=== PATIENT | male | born 1960 | race Caucasian/White ===

== ENCOUNTER 2019-03-27 11:15 | Outpatient (CLI) | payer MEDICARE, OTHER | END 2019-03-27 23:59 | disposition home or self-care (01) | LOC: 64 CT 11:15 | PROVIDERS: ATTEND Surgery | DX: K40.90 Unilateral inguinal hernia, without obstruction or gangrene, not specified as recurrent (principal); I71.4 Abdominal aortic aneurysm, without rupture; J90 Pleural effusion, not elsewhere classified; N40.0 Benign prostatic hyperplasia without lower urinary tract symptoms; N26.1 Atrophy of kidney (terminal); K82.8 Other specified diseases of gallbladder; I70.90 Unspecified atherosclerosis | CPT/HCPCS: 74176 ==

== ENCOUNTER 2019-07-23 11:46 | Inpatient (IN) | payer MEDICARE, OTHER ==
[~2019-07-23] VITALS: Ht 172.7 cm; Wt 85.3 kg
[~2019-07-23 11:46] MED LIST: CEFTAZIDIME IVT SCH; STERILE IVT SCH; WATER FOR INJECTION IVT SCH
[2019-07-23] MEDS ORDERED: acetaminophen 325mg tablet PO PRN (12:25)
[2019-07-23] MEDS ORDERED: ondansetron/PF 4mg/2ml inj IV PRN (12:25)
[2019-07-23 12:30] VITALS: BP 124/89
[2019-07-23] MEDS ORDERED: perit dialysis 13 & dext 2.5% 6,000 ML IP PRN (12:35)
[2019-07-23 13:13] LABS: BASOPHILS # (AUTO) 0.1 X10'3 (0-0.2); BASOPHILS % (AUTO) 1.2 % (0-1); EOSINOPHILS # (AUTO) 0.3 X10'3 (0-0.9); EOSINOPHILS % (AUTO) 3.6 % (0-6); HEMATOCRIT 30.7 % (42.0-52.0); LYMPHOCYTES % (AUTO) 10.4 % (21-51); MEAN CORPUSCULAR HEMOGLOBIN 34.8 PG (27.0-31.0); MEAN CORPUSCULAR HGB CONC 32.6 g/dL (33.0-36.5); MEAN CORPUSCULAR VOLUME 106.6 FL (78-98); MEAN PLATELET VOLUME 8.9 FL (7.4-10.4); MONOCYTES % (AUTO) 10.6 % (2-12); NEUTROPHILS # (AUTO) 7.1 X10'3 (1.8-7.7); NEUTROPHILS % (AUTO) 74.2 % (42-75); PLATELET COUNT 182 X10'3 (140-440); RED BLOOD COUNT 2.88 X10'6 (4.70-6.10); RED CELL DISTRIBUTION WIDTH 18.5 % (11.5-14.5); WHITE BLOOD COUNT 9.6 X10'3 (4.5-11.0)
[2019-07-23 13:25] LABS: ALANINE AMINOTRANSFERASE 28 U/L (12-78); ALBUMIN 2.4 G/DL (3.4-5.0); ALBUMIN/GLOBULIN RATIO 0.7 (1.1-1.5); ALKALINE PHOSPHATASE 85 IU/L (46-116); ANION GAP 11 (8-16); ASPARTATE AMINO TRANSFERASE 16 U/L (10-37); BILIRUBIN,TOTAL 0.3 MG/DL (0.1-1.0); BLOOD UREA NITROGEN 75 MG/DL (7-18); BUN/CREATININE RATIO 7.2 (5.4-32.0); CALCIUM 8.9 MG/DL (8.5-10.1); CHLORIDE 100 MMOL/L (99-107); CREATININE 10.44 MG/DL (0.60-1.10); GLUCOSE 119 MG/DL (70-104); SODIUM 141 MMOL/L (135-145); TOTAL CARBON DIOXIDE 29.9 MMOL/L (24-32); TOTAL PROTEIN 5.8 G/DL (6.4-8.2); eGFR 5 ML/MIN
[2019-07-23] MEDS ORDERED: DEXT IJ ONE ×3 (13:25→14:02)
[2019-07-23] MEDS ORDERED: PERIT DIALYSIS IJ ONE ×3 (13:25→14:02)
[2019-07-23] MEDS ORDERED: CEFTAZIDIME IJ ONE ×3 (13:25→14:02)
[2019-07-23 13:31] LABS: POTASSIUM 2.9 MMOL/L (3.5-5.1)
--- NOTE | 2019-07-23 13:40 | NUR ---
Received TC from lab at 1330 that pt had critical Potassium of 2.9. TC placed to in ICU to inform. Informed currently "doing a procedure" by Fely. Fely stated she would give Dr. Cherry a message. Will continue to monitor new MD orders.
[2019-07-23 13:59] VITALS: BP 124/89
[2019-07-23 14:05] VITALS: BP 135/89
[2019-07-23 14:05] LABS: PLATELET ESTIMATE NORMAL
[2019-07-23] MEDS ORDERED: LOSA100T57 PO (14:05)
[2019-07-23] MEDS ORDERED: EZET10TA48 PO (14:05)
[2019-07-23] MEDS ORDERED: FOLI0.8T7 PO (14:05)
[2019-07-23] MEDS ORDERED: VENL75CA61 PO (14:05)
[2019-07-23] MEDS ORDERED: CHOL100044 PO (14:05)
[2019-07-23] MEDS ORDERED: FURO40TA4 PO (14:05)
[2019-07-23] MEDS ORDERED: ASPI81TA52 PO (14:05)
[2019-07-23] MEDS ORDERED: CARV6.253 PO (14:05)
[2019-07-23] MEDS ORDERED: MOME15CR TOP (14:05)
[2019-07-23] MEDS ORDERED: CALC667C5 PO (14:05)
[2019-07-23] MEDS ORDERED: HYDR-3686 PO (14:05)
[2019-07-23] MEDS ORDERED: PANT40TA4 PO (14:05)
[2019-07-23] MEDS ORDERED: ATOR-2 PO (14:05)
[2019-07-23] MEDS ORDERED: CLOP75TA35 PO (14:05)
[2019-07-23] MEDS ORDERED: SEVE800T7 PO (14:05)
[2019-07-23 14:06] VITALS: BP 117/79
[2019-07-23 14:06] LABS: ANISOCYTOSIS 2+
[2019-07-23] MEDS ORDERED: UBID100C45 PO (14:06)
[2019-07-23] MEDS ORDERED: AMLO10TA13 PO (14:07)
[2019-07-23] MEDS ORDERED: CINA30TA7 PO (14:20)
[2019-07-23] MEDS ORDERED: [UNRECOGNIZED DRUG - CODE] SQ (14:22)
[2019-07-23] MEDS ORDERED: LEVO50TA PO (14:41)
[2019-07-23] MEDS ORDERED: potassium Cl 20 mEq SR tablet PO STA (15:10)
[2019-07-23 16:11] LABS: BFAPPEAR CLEAR
[2019-07-23 16:12] LABS: BF RBC COUNT 445 /CU MM; BF WBC COUNT 110 /CU MM (0-1000); BFCOLOR OTHER; BFVOLUME 23 ML; LYMPHOCYTES,BODY FLUID 56 %; NEUTROPHILS,BODY FLUID 44 %
[2019-07-23 18:30] VITALS: BP 134/87
[2019-07-23 20:00] VITALS: BP_SYST 133; BP_SYST 135; BP_SYST 136; BP_DIAS 85; BP_DIAS 86; BP_DIAS 92
[2019-07-23] MEDS: heparin, porcine 5000 units/ml vial SQ SCH (20:49)
[2019-07-23] MEDS: docusate sod 100mg capsule PO SCH (20:50)
[2019-07-24] VITALS (11 sets, daily range): BP systolic 140–167; BP diastolic 89–126
[2019-07-24 05:30] LABS: BASOPHILS # (AUTO) 0.1 X10'3 (0-0.2); BASOPHILS % (AUTO) 1.1 % (0-1); EOSINOPHILS # (AUTO) 0.4 X10'3 (0-0.9); HEMATOCRIT 30.4 % (42.0-52.0); HEMOGLOBIN 10.3 g/dl (14.0-17.9); LYMPHOCYTES # (AUTO) 1.1 X10'3 (1.1-4.8); LYMPHOCYTES % (AUTO) 11.4 % (21-51); MEAN CORPUSCULAR HEMOGLOBIN 35.5 PG (27.0-31.0); MEAN CORPUSCULAR HGB CONC 33.8 g/dL (33.0-36.5); MEAN CORPUSCULAR VOLUME 105.1 FL (78-98); MONOCYTES # (AUTO) 1.3 X10'3 (0-0.9); MONOCYTES % (AUTO) 13.3 % (2-12); NEUTROPHILS # (AUTO) 6.6 X10'3 (1.8-7.7); NEUTROPHILS % (AUTO) 70.2 % (42-75); PLATELET COUNT 203 X10'3 (140-440); RED BLOOD COUNT 2.89 X10'6 (4.70-6.10); RED CELL DISTRIBUTION WIDTH 18.8 % (11.5-14.5); WHITE BLOOD COUNT 9.5 X10'3 (4.5-11.0)
[2019-07-24 05:47] LABS: ALANINE AMINOTRANSFERASE 29 U/L (12-78); ALBUMIN 2.5 G/DL (3.4-5.0); ALBUMIN/GLOBULIN RATIO 0.7 (1.1-1.5); ALKALINE PHOSPHATASE 87 IU/L (46-116); ANION GAP 13 (8-16); ASPARTATE AMINO TRANSFERASE 21 U/L (10-37); BILIRUBIN,TOTAL 0.3 MG/DL (0.1-1.0); BLOOD UREA NITROGEN 74 MG/DL (7-18); BUN/CREATININE RATIO 6.8 (5.4-32.0); CALCIUM 8.9 MG/DL (8.5-10.1); CHLORIDE 99 MMOL/L (99-107); CREATININE 10.87 MG/DL (0.60-1.10); GLUCOSE 104 MG/DL (70-104); POTASSIUM 3.3 MMOL/L (3.5-5.1); SODIUM 139 MMOL/L (135-145); TOTAL CARBON DIOXIDE 26.6 MMOL/L (24-32); TOTAL PROTEIN 6.1 G/DL (6.4-8.2); eGFR 5 ML/MIN
--- NOTE | 2019-07-24 06:25 | NUR ---
Problems reprioritized. Patient report given, questions answered & plan of care reviewed with NIMESH MARTIN.
[2019-07-24 07:00] LABS: PLATELET ESTIMATE NORMAL
[2019-07-24 07:01] LABS: ANISOCYTOSIS 2+; HYPOCHROMASIA 1+; POLYCHROMASIA 2+
[2019-07-24 07:02] LABS: STOMATOCYTES FEW
[2019-07-24] MEDS ORDERED: epoetin 20,000 units/ml inj IV ONE (08:00)
[2019-07-24] MEDS ORDERED: normal saline 1000ml 250 ML IV PRN (08:00)
[2019-07-24] MEDS: heparin, porcine 5000 units/ml vial SQ SCH ×2 (08:00→21:19)
[2019-07-24] MEDS ORDERED: heparin 1,000 units/ml 10ml inj HE ONE ×2 (08:00)
[2019-07-24] MEDS: docusate sod 100mg capsule PO SCH ×2 (08:00→20:00)
[2019-07-24] MEDS ORDERED: mometasone furoate 0.1% cream 15gm tube TP PRN (11:10)
[2019-07-24] MEDS: sevelamer carbonate 800mg tablet PO SCH ×2 (13:00→19:17)
[2019-07-24] MEDS: calcium acetate 667mg (PhosLO) capsule PO SCH ×2 (13:00→18:00)
[2019-07-24] MEDS ORDERED: normal saline 1000ml 1,000 ML IV SCH (13:51)
[2019-07-24] MEDS ORDERED: midazolam 2 mg/2 ml injection IV PRN (13:55)
[2019-07-24] MEDS ORDERED: fentaNYL/PF 50MCG/1 ML 2ML syringe IV PRN (13:55)
[2019-07-24] MEDS ORDERED: LIDOcaine 1%/PF 5ML 10 MG/ML VIAL SQ ONE (13:55)
[2019-07-24] MEDS ORDERED: fentaNYL/PF 50MCG/1 ML 2ML syringe ONE (14:44)
[2019-07-24] MEDS ORDERED: heparin 1,000unit/ml 10ml vial 10 ML ONE (14:44)
[2019-07-24] MEDS ORDERED: midazolam 2 mg/2 ml injection ONE (14:44)
[2019-07-24] MEDS ORDERED: LIDOcaine 1%/PF 5ML 10 MG/ML VIAL ONE (14:44)
[2019-07-24] MEDS ORDERED: ondansetron/PF 4mg/2ml inj ONE (14:50)
[2019-07-24] MEDS ORDERED: ondansetron/PF 4mg/2ml inj IV ONE (16:00)
[2019-07-24] MEDS ORDERED: pantoprazole 40mg Tablet.DR PO ONE (19:40)
[2019-07-24] MEDS: carvedilol 6.25mg tablet PO SCH (21:17)
[2019-07-24] MEDS: vitamin D (cholecalciferol) 1,000 unit tablet PO SCH (21:17)
[2019-07-24] MEDS: hydrOXYzine 25 MG tablet PO SCH (21:18)
[2019-07-25] VITALS (11 sets, daily range): BP systolic 123–162; BP diastolic 75–108
[2019-07-25 05:57] LABS: BASOPHILS # (AUTO) 0.1 X10'3 (0-0.2); BASOPHILS % (AUTO) 0.8 % (0-1); EOSINOPHILS # (AUTO) 0.3 X10'3 (0-0.9); EOSINOPHILS % (AUTO) 3.4 % (0-6); HEMATOCRIT 31.5 % (42.0-52.0); HEMOGLOBIN 10.5 g/dl (14.0-17.9); LYMPHOCYTES # (AUTO) 0.7 X10'3 (1.1-4.8); MEAN CORPUSCULAR HEMOGLOBIN 35.5 PG (27.0-31.0); MEAN CORPUSCULAR HGB CONC 33.2 g/dL (33.0-36.5); MEAN CORPUSCULAR VOLUME 106.9 FL (78-98); MEAN PLATELET VOLUME 8.8 FL (7.4-10.4); MONOCYTES # (AUTO) 1.1 X10'3 (0-0.9); NEUTROPHILS % (AUTO) 73.8 % (42-75); PLATELET COUNT 191 X10'3 (140-440); RED BLOOD COUNT 2.95 X10'6 (4.70-6.10); RED CELL DISTRIBUTION WIDTH 19.4 % (11.5-14.5); WHITE BLOOD COUNT 8.1 X10'3 (4.5-11.0)
[2019-07-25 06:05] LABS: ALANINE AMINOTRANSFERASE 32 U/L (12-78); ALBUMIN 2.5 G/DL (3.4-5.0); ALBUMIN/GLOBULIN RATIO 0.7 (1.1-1.5); ALKALINE PHOSPHATASE 93 IU/L (46-116); ANION GAP 10 (8-16); ASPARTATE AMINO TRANSFERASE 26 U/L (10-37); BILIRUBIN,TOTAL 0.3 MG/DL (0.1-1.0); BLOOD UREA NITROGEN 38 MG/DL (7-18); BUN/CREATININE RATIO 5.8 (5.4-32.0); CALCIUM 8.9 MG/DL (8.5-10.1); CHLORIDE 103 MMOL/L (99-107); CREATININE 6.53 MG/DL (0.60-1.10); GLUCOSE 109 MG/DL (70-104); POTASSIUM 4.2 MMOL/L (3.5-5.1); SODIUM 141 MMOL/L (135-145); TOTAL CARBON DIOXIDE 28.2 MMOL/L (24-32); TOTAL PROTEIN 6.2 G/DL (6.4-8.2); eGFR 9 ML/MIN
[2019-07-25 06:37] LABS: HEMOGLOBIN A1C 5.8 % (4.5-6.2)
--- NOTE | 2019-07-25 06:49 | NUR ---
Problems reprioritized. Patient report given, questions answered & plan of care reviewed with pushpa Mckay.
[2019-07-25 06:50] LABS: ANISOCYTOSIS 2+; PLATELET ESTIMATE NORMAL
[2019-07-25 06:52] LABS: MICROCYTOSIS FEW
[2019-07-25] MEDS: heparin, porcine 5000 units/ml vial SQ SCH ×2 (06:54→20:05)
[2019-07-25] MEDS: calcium acetate 667mg (PhosLO) capsule PO SCH ×3 (07:28→18:12)
[2019-07-25] MEDS: carvedilol 6.25mg tablet PO SCH ×2 (07:33→20:05)
[2019-07-25] MEDS: sevelamer carbonate 800mg tablet PO SCH ×3 (08:00→18:14)
[2019-07-25] MEDS ORDERED: non-formulary drug (Ubidecarenone (Co Q-10) 100 MG) PO SCH (08:00)
[2019-07-25] MEDS ORDERED: heparin 10,000 units/1 ML INJ ONE (11:09)
[2019-07-25] MEDS ORDERED: LIDOcaine 1% 30ml preserv. free vial ONE (11:09)
[2019-07-25] MEDS ORDERED: BUPIVAcaine/PF 2.5mg/ml (0.25%) 10ml vial ONE (11:10)
[2019-07-25] MEDS ORDERED: MIDAZolam 5mg/5ml vial ONE (11:31)
[2019-07-25] MEDS ORDERED: fentaNYL/PF 50MCG/1 ML 2ML syringe ONE ×2 (11:31→12:39)
[2019-07-25] MEDS ORDERED: propofol 10mg/ml 20ml vial IV ONE (11:35)
[2019-07-25] MEDS ORDERED: epiNEPHrine 1 mg/ml inj ONE (12:14)
[2019-07-25] MEDS ORDERED: ceFAZolin 1000mg inj ONE ×2 (12:25)
[2019-07-25] MEDS ORDERED: ketamine 50mg/5ml syringe ONE (12:56)
--- NOTE | 2019-07-25 13:20 | NUR ---
Received from OR via BED , accompanied by Anesthesiologist DR LAGOS and report given by Anesthesiolgist. PATIENT WAKING UP, DENIES PAIN, V/S WNL, NEUROVASCULAR CHECKS INTACT, 20G PIV RUE, SCD ON, DRESSING TO ABDOMEN CDI, DRESSING TO LEFT ARM CDI W/ SLING, DIALYSIS CATH TO RIGHT CHEST,
--- NOTE | 2019-07-25 14:00 | NUR ---
PATIENT A&0X4, DENIES PAIN, V/S WNL, NEUROVASCULAR CHECKS INTACT, 20G PIV RUE, SCD ON, DRESSING TO ABDOMEN CDI, DRESSING TO LEFT ARM CDI W/ SLING, DIALYSIS CATH TO RIGHT CHEST, PATIENT TAKEN TO ORTHO WITH ALL BELONGINGS AND HOOKED UP TO MONITORS IN ROOM AND REPORT GIVEN TO RAIL SIGNAL DESIGNER WHO HAS TAKEN OVER PATIENT CARE.
[2019-07-25] MEDS: folic acid/vitamin B complex w/vitamin C 0.8mg tablet PO SCH (14:12)
[2019-07-25] MEDS: pantoprazole 40mg Tablet.DR PO SCH (14:16)
[2019-07-25] MEDS: cinacalcet 30mg tablet PO SCH (14:16)
[2019-07-25] MEDS: venlafaxine XR 75mg capsule (Q24H) PO SCH (14:16)
[2019-07-25] MEDS: vitamin D (cholecalciferol) 1,000 unit tablet PO SCH ×2 (14:17→20:05)
[2019-07-25] MEDS: aspirin 81mg tablet.DR PO SCH (14:17)
[2019-07-25] MEDS: atorvastatin 20mg tablet PO SCH (14:17)
[2019-07-25] MEDS: levoTHYROXINE 25mcg tablet PO SCH (14:17)
[2019-07-25] MEDS: ezetimibe 10mg tablet PO SCH (14:17)
[2019-07-25] MEDS: furosemide 40mg tablet PO SCH (14:17)
[2019-07-25] MEDS: docusate sod 100mg capsule PO SCH ×2 (14:18→20:05)
--- NOTE | 2019-07-25 17:25 | NUR ---
Initial: Pt admit w/ peritonitis and PD cath leakage and moving out of place. S/p AV fistula for HD access needs. Hx EF 16% per MD note. Pt PO 100% renal diet meeting needs. LBM 07/24. MCV 106.9; to receive MVI w/ B-complex starting today per EMR. Will continue to monitor. Rec: 1. continue renal diet per MD 2. wt w/ HD Addendum: 07/25/19 at [address] Amended: Links added.
[2019-07-25] MEDS: hydrOXYzine 25 MG tablet PO SCH (20:05)
[2019-07-26 05:28] LABS: BASOPHILS # (AUTO) 0.1 X10'3 (0-0.2); BASOPHILS % (AUTO) 0.5 % (0-1); EOSINOPHILS # (AUTO) 0.1 X10'3 (0-0.9); EOSINOPHILS % (AUTO) 0.8 % (0-6); HEMOGLOBIN 9.4 g/dl (14.0-17.9); LYMPHOCYTES # (AUTO) 0.9 X10'3 (1.1-4.8); LYMPHOCYTES % (AUTO) 6.5 % (21-51); MEAN CORPUSCULAR HEMOGLOBIN 34.7 PG (27.0-31.0); MEAN CORPUSCULAR HGB CONC 32.3 g/dL (33.0-36.5); MEAN CORPUSCULAR VOLUME 107.3 FL (78-98); MEAN PLATELET VOLUME 8.9 FL (7.4-10.4); MONOCYTES # (AUTO) 1.2 X10'3 (0-0.9); MONOCYTES % (AUTO) 8.7 % (2-12); NEUTROPHILS # (AUTO) 11.3 X10'3 (1.8-7.7); NEUTROPHILS % (AUTO) 83.5 % (42-75); PLATELET COUNT 187 X10'3 (140-440); RED CELL DISTRIBUTION WIDTH 19.5 % (11.5-14.5); WHITE BLOOD COUNT 13.5 X10'3 (4.5-11.0)
[2019-07-26 05:50] LABS: ALANINE AMINOTRANSFERASE 15 U/L (12-78); ALBUMIN 2.5 G/DL (3.4-5.0); ALBUMIN/GLOBULIN RATIO 0.7 (1.1-1.5); ALKALINE PHOSPHATASE 83 IU/L (46-116); ANION GAP 13 (8-16); ASPARTATE AMINO TRANSFERASE 18 U/L (10-37); BILIRUBIN,TOTAL 0.2 MG/DL (0.1-1.0); BLOOD UREA NITROGEN 65 MG/DL (7-18); BUN/CREATININE RATIO 7.4 (5.4-32.0); CALCIUM 8.7 MG/DL (8.5-10.1); CHLORIDE 101 MMOL/L (99-107); CREATININE 8.83 MG/DL (0.60-1.10); GLUCOSE 153 MG/DL (70-104); POTASSIUM 4.4 MMOL/L (3.5-5.1); SODIUM 140 MMOL/L (135-145); TOTAL CARBON DIOXIDE 26.2 MMOL/L (24-32); TOTAL PROTEIN 5.9 G/DL (6.4-8.2); eGFR 6 ML/MIN
[2019-07-26 06:34] LABS: ANISOCYTOSIS 2+; PLATELET ESTIMATE NORMAL
[2019-07-26 06:35] LABS: POLYCHROMASIA 1+
[2019-07-26 06:36] LABS: ELLIPTOCYTES 1+
[2019-07-26 06:37] LABS: STOMATOCYTES FEW
--- NOTE | 2019-07-26 06:53 | NUR ---
Report given Deepa BEAVERS.
[2019-07-26] MEDS: calcium acetate 667mg (PhosLO) capsule PO SCH (07:51)
[2019-07-26 07:53] VITALS: BP 143/107
[2019-07-26] MEDS ORDERED: heparin 1,000unit/ml 10ml vial 10 ML IV ONE (08:00)
[2019-07-26] MEDS ORDERED: epoetin 20,000 units/ml inj IV ONE (08:00)
[2019-07-26] MEDS: furosemide 40mg tablet PO SCH (08:00)
[2019-07-26] MEDS ORDERED: clopidogrel 75mg tablet PO SCH (08:00)
[2019-07-26] MEDS ORDERED: epoetin 20,000 units/ml inj SQ SCH (08:00)
[2019-07-26] MEDS ORDERED: heparin 1,000 units/ml 10ml inj HE ONE ×2 (08:00)
[2019-07-26] MEDS ORDERED: normal saline 1000ml 250 ML IV PRN (08:00)
[2019-07-26] MEDS: carvedilol 6.25mg tablet PO SCH (08:00)
--- NOTE | 2019-07-26 08:11 | NUR ---
Patient states "tingling" sensation in toes bi-laterally Addendum: 07/26/19 at 0821 by Quinton HERNANDEZ Amended: Links added.
--- NOTE | 2019-07-26 09:00 | NUR ---
Patient receiving HD. Dialysis Nurse stated to old BP Meds. Coreg and Dolly. RN made aware.
[2019-07-26] MEDS: vitamin D (cholecalciferol) 1,000 unit tablet PO SCH (09:21)
[2019-07-26] MEDS: cinacalcet 30mg tablet PO SCH (09:21)
[2019-07-26] MEDS: folic acid/vitamin B complex w/vitamin C 0.8mg tablet PO SCH (09:21)
[2019-07-26] MEDS: levoTHYROXINE 25mcg tablet PO SCH (09:22)
[2019-07-26] MEDS: atorvastatin 20mg tablet PO SCH (09:23)
[2019-07-26] MEDS: aspirin 81mg tablet.DR PO SCH (09:23)
[2019-07-26] MEDS: pantoprazole 40mg Tablet.DR PO SCH (09:24)
[2019-07-26] MEDS: venlafaxine XR 75mg capsule (Q24H) PO SCH (09:24)
[2019-07-26] MEDS: docusate sod 100mg capsule PO SCH (09:24)
[2019-07-26] MEDS: ezetimibe 10mg tablet PO SCH (09:25)
[2019-07-26 10:00] VITALS: BP 121/80
--- NOTE | 2019-07-26 11:20 | NUR ---
Problems reprioritized. Patient report given, questions answered & plan of care reviewed with NIMESH Valenzuela .
--- NOTE | 2019-07-26 11:25 | NUR ---
Patient in room ORTHO 4016. I have received report from and had the opportunity to ask questions and assume patient care.
--- NOTE | 2019-07-26 11:29 | NUR ---
Patient in room ORTHO 4016. I have received report from Deepa BEAVERS and had the opportunity to ask questions and assume patient care.
--- NOTE | 2019-07-26 11:59 | NUR ---
Student documentation: I have reviewed all interventions, assessments performed [facility] Student Medication Administration: For this medication-pass time frame, all medication were reviewed, dispensed, administered and documented per hospital policy by [facility].
--- NOTE | 2019-07-26 15:30 | NUR ---
Student documentation: I have reviewed and agree with all interventions, assessments performed and documented by Bianca BEAVERS.
[2019-07-27 05:20] LABS: HBSAG SCREEN Negative (Negative)
== END 2019-07-26 16:10 | disposition home or self-care (01) | DRG 907 ==
LOC: ORTHO 4S 11:46
PROC: 3E1M39Z Irrigation of Peritoneal Cavity using Dialysate, Percutaneous Approach (ICD-10-PCS; 2019-07-23)
PROC: 02H633Z Insertion of Infusion Device into Right Atrium, Percutaneous Approach (ICD-10-PCS; 2019-07-24)
PROC: 0JH63XZ Insertion of Tunneled Vascular Access Device into Chest Subcutaneous Tissue and Fascia, Percutaneous Approach (ICD-10-PCS; 2019-07-24)
PROC: B2141ZZ Fluoroscopy of Right Heart using Low Osmolar Contrast (ICD-10-PCS; 2019-07-24)
PROC: B244ZZZ Ultrasonography of Right Heart (ICD-10-PCS; 2019-07-24)
PROC: 5A1D70Z Performance of Urinary Filtration, Intermittent, Less than 6 Hours Per Day (ICD-10-PCS; 2019-07-24)
PROC: 0WPG03Z Removal of Infusion Device from Peritoneal Cavity, Open Approach (ICD-10-PCS; 2019-07-25)
PROC: 3E0T3BZ Introduction of Anesthetic Agent into Peripheral Nerves and Plexi, Percutaneous Approach (ICD-10-PCS; 2019-07-25)
PROC: 031C0ZF Bypass Left Radial Artery to Lower Arm Vein, Open Approach (ICD-10-PCS; principal; 2019-07-25 11:35)
PROC: 5A1D70Z Performance of Urinary Filtration, Intermittent, Less than 6 Hours Per Day (ICD-10-PCS; 2019-07-26)
DX: T85.621A Displacement of intraperitoneal dialysis catheter, initial encounter (principal); K65.9 Peritonitis, unspecified; N18.6 End stage renal disease; Y82.8 Other medical devices associated with adverse incidents; Z95.5 Presence of coronary angioplasty implant and graft; Z95.810 Presence of automatic (implantable) cardiac defibrillator; Z99.2 Dependence on renal dialysis; Y92.89 Other specified places as the place of occurrence of the external cause; Z88.8 Allergy status to other drugs, medicaments and biological substances
CPT/HCPCS: 36415; 36558; 71045; 76937; 77001; 80053; 82948; 83036; 85025; 87070; 87081; 87340; 89051; 93306; 97116; 97161; 97530; 99152; 99153; A4215; A4565; A4618; A6402; A6449; A7000; A9270; C1750; C1894; E1594; G0257; G0378; J0171; J0604; J0690; J0713; J1644; J2001; J2250; J2405; J2704; J3010; J3490; J7030; J7040; J7120; Q4081; Z7610